=== PATIENT | female | born 1985 | race Caucasian/White ===

== ENCOUNTER → 2017-06-18 16:11 | Observation (INO) ==
[2017-06-18 14:44] LABS: Basophils % 0.1 %; Eosinophils % 0.1 %; Hematocrit 34.1 % (35.3-44.9); Hemoglobin 11.6 g/dL (11.5-15.4); Immature Granulocytes % 0.7 % (0-4); Lymphocytes # 1.2 K/mcL (0.6-4.6); Lymphocytes % 13.8 %; Mean Corpuscular Hemoglobin 31.6 pg (28.0-33.3); Mean Corpuscular Volume 92.9 fL (83.0-100.0); Mean Platelet Volume 12.1 fL (9.4-12.4); Monocytes # 0.5 K/mcL (0.0-1.3); Monocytes % 6.4 %; Neutrophils # 6.6 K/mcL (1.6-8.9); Platelet Count 153 K/mcL (140-400); Red Blood Count 3.67 M/mcL (3.82-4.97); Red Cell Distribution Width 13.4 % (11.5-14.5); Segmented Neutrophils % 78.9 %
[2017-06-18 14:46] LABS: Bilirubin,Urine Negative (Negative); Blood,Urine Negative (Negative); Clarity,Urine Clear (Clear); Color,Urine Yellow (Yellow); Glucose,Urine (UA) Normal (Normal); Ketones,Urine Negative (Negative); Leukocyte Esterase,Urine Negative (Negative); Nitrite,Urine Negative (Negative); Protein,Urine Negative (Neg-Trace); Specific Gravity,Urine 1.008 (1.010-1.025); Urobilinogen,Urine Normal (Normal)
[2017-06-18 14:53] LABS: Amphetamine Screen,Urine Negative ng/mL (Cutoff=1000); Barbiturate Screen,Urine Negative ng/mL (Cutoff=200); Benzodiazepines Screen,Urine Negative ng/mL (Cutoff=200); Cannabinoid Screen,Urine Negative ng/mL (Cutoff = 50); Cocaine Screen,Urine Negative ng/mL (Cutoff= 300); Opiate Screen,Urine Negative ng/mL (Cutoff=300); Phencyclidine Screen,Urine Negative ng/mL (Cutoff=25)
[2017-06-18 14:54] LABS: Creatinine,Urine 35 mg/dL
[2017-06-18 14:56] LABS: Alanine Aminotransferase 11 Units/L (0-55); Aspartate Amino Transferase 15 Units/L (5-34); BUN/Creatinine Ratio 11 (6-26); Blood Urea Nitrogen 8 mg/dL (7-20); Lactate Dehydrogenase 169 Units/L (159-327); Uric Acid 6.3 mg/dL (2.6-6.0); eGFR For African Americans > 60 (> 60); eGFR For Non-African Americans > 60 (> 60)
--- NOTE | 2017-06-18 15:50 | OB/GYN Progress Note ---
Date of Encounter: 06/18/17 Time of Encounter: 15:42 - Assessment and Plan (1) headache in third trimester Current Visit: Yes Status: Acute Patient with headache c/w sinus/tension headache. -Patient does not wish to take fioriciet -Advised to take tylenol cold and sinus as well as consume a small amount of caffeine. -PIH labs normal/Urine creatinine protein WNL -FU in office for routine care -FHT reactive and assuring (2) 37 weeks gestation of Current Visit: Yes Status: Acute Subjective - Subjective Principal diagnosis: Headache Interval history: 32-year-old female at 37 weeks and 3 days presents to [facility] for a PIH evaluation. Patient states she has had a headache for 2 days. She states she has been drinking a lot of fluids, and has taken Tylenol which has provided minimal relief. Patient describes her headache as located mostly in her face with radiation around to the back of her head and into her neck. She denies any visual disturbances, epigastric pain, nausea, or vomiting. Patient reports good movement. She denies any vaginal bleeding or leakage of fluid. Antepartum ROS: movement normal, no loss of fluid, no vaginal bleeding, no contractions Objective - Exam FHR: auscultation normal, category 1 FHR comments: FHT 140 baseline, moderate variability, 15x15 accelerations Auscultation: bilateral: normal Abdomen: Present: normal appearance, soft, gravid Uterus: Present: normal. Absent: tenderness - Labs Labs: Abnormal lab results RBC 3.67 M/mcL (3.82-4.97) L 06/18/17 14:20 Hct 34.1 % (35.3-44.9) L 06/18/17 14:20 Uric Acid 6.3 mg/dL (2.6-6.0) H 06/18/17 14:20 Ur Specific [place] 1.008 (1.010-1.025) L 06/18/17 14:10
[~2017-06-18 16:11] MED LIST: Ringers Solution, Lactated 1,000 ML IVC SCH
== END | disposition home or self-care (01) ==
LOC: 1NENULAB
PROVIDERS: ADMIT Obstetrics & Gynecology; ATTEND Obstetrics & Gynecology

== ENCOUNTER 2017-07-07 05:57 | Inpatient (IN) ==
[2017-07-07] MEDS ORDERED: Ondansetron 4 MG/2 ML VIAL IVP PRN (06:15)
[2017-07-07] MEDS ORDERED: Naloxone 0.4 MG/ML INJ IVP PRN (06:15)
[2017-07-07] MEDS ORDERED: Ringers Solution, Lactated 1,000 ML IVC SCH (06:15)
[2017-07-07] MEDS ORDERED: *HR* Nalbuphine 20 MG/ML AMPUL IVP PRN (06:15)
[2017-07-07] MEDS ORDERED: Famotidine 20 MG/2 ML VIAL IVP PRN (06:15)
[2017-07-07 06:26] LABS: Basophils % 0.2 %; Eosinophils % 0.2 %; Hematocrit 36.9 % (35.3-44.9); Hemoglobin 12.5 g/dL (11.5-15.4); Immature Granulocytes % 0.6 % (0-4); Lymphocytes # 1.3 K/mcL (0.6-4.6); Lymphocytes % 11.3 %; Mean Corpuscular HGB Conc 33.9 g/dL (31.6-35.5); Mean Corpuscular Volume 91.6 fL (83.0-100.0); Mean Platelet Volume 12.6 fL (9.4-12.4); Monocytes # 0.7 K/mcL (0.0-1.3); Monocytes % 6.4 %; Neutrophils # 9.1 K/mcL (1.6-8.9); Platelet Count 161 K/mcL (140-400); Red Blood Count 4.03 M/mcL (3.82-4.97); Red Cell Distribution Width 13.4 % (11.5-14.5); Segmented Neutrophils % 81.3 %
[2017-07-07 06:37] LABS: Amphetamine Screen,Urine Negative ng/mL (Cutoff=1000); Barbiturate Screen,Urine Negative ng/mL (Cutoff=200); Benzodiazepines Screen,Urine Negative ng/mL (Cutoff=200); Cannabinoid Screen,Urine Negative ng/mL (Cutoff = 50); Cocaine Screen,Urine Negative ng/mL (Cutoff= 300); Opiate Screen,Urine Negative ng/mL (Cutoff=300); Phencyclidine Screen,Urine Negative ng/mL (Cutoff=25)
--- NOTE | 2017-07-07 06:42 | Anesthesia Evaluation PreOp ---
Date of Encounter: 07/07/17 Time of Encounter: 06:37 - Past History Planned Operation: vaginal del, G1 spont 5cm Cardiac History: Denies any Significant Hx Pulmonary History: Denies Any Significant HX TAPPER SHANK History: Denies Any Significant HX Other Medical History: Other (chronic back pain, left sciatic problems, non dependent radiculopathy) Anesthesia History: No Prior Anesthetic Complications, Past Anesthesia (wisdom teeth, no family hx.) Alcohol Use: none Drug use: none Medications and Allergies Vit/Iron Fumarate/FA [ Tablet] 1 each PO DAILY 07/07/17 [ History] 3 Allergy/AdvReac Type Severity Reaction Status Date / Time No Known Allergies Allergy Verified 07/07/17 06:03 Anesthesia Results - Labs 07/07/17 06:15 Anesthesia Exam - HEENT Pupil (Motor): Pupils equal Mallampati: II Teeth: Normal Oral Opening: Greater than 3 - TAPPER SHANK LOC: Oriented TAPPER SHANK Motor: Normal RUE, Normal LUE, Normal RLE, Normal LLE, Normal Face TAPPER SHANK Sensory: Normal: RUE, LUE, RLE, LLE, Face - Cardiac Rhythm: Regular Murmur: None - Pulmonary Breath Sounds: bilateral Clear Respiratory Effort: Symmetrical Anesthesia Assess/Plan ASA Score: 2 Modified Luly Scale for Level of Consciousness: Cooperative, oriented, and tranquil Anesthetic Plan: General, Regional (patient does not want regional at this time. ) Monitoring Plan: Standard Monitors
--- NOTE | 2017-07-07 06:49 | OB/GYN History & Physical ---
Date of Encounter: 07/07/17 Time of Encounter: 06:45 Assessment and Plan (1) Spontaneous onset of labor Current visit: Yes Status: Acute Patient states that she has been having contractions since 2044 last night. States that they were about 6 minutes apart. Last check today she was 5/100/-1. Pervious check on 07/05/17 she was dilated 1cm LR-125ml/hr CBC UDS Continue monitoring Wants to wait on epidural GBS Negative- No prophylaxis required Plan for vaginal delivery (2) Uterine contractions Current visit: Yes Status: Acute Patient states that she has been having contractions since 2044 last night. States that they were about 6 minutes apart. (3) 40 weeks gestation of Current visit: Yes Status: Acute Patient is 40w1d EGA. Denies any complications with the . GBS Neg no prophylaxis required. History of Present Illness Chief complaint: contractions HPI: Ms. Chavis is a 32 year old female at 40w1d presents to labor and delivery for contractions. She states they began last night at 2044 and have been about every 6 minutes. Patient denies any loss of fluid or vaginal bleeding other than when she passed her mucus plug. Denies vaginal discharge. Denies any complications with the . Reports good movement. Patient states that she s having some sciatic pain that began prior to the . States that she is doing is doing well and would like to wait on epidural. Patient of Dr. Bernard Blood Type A Positive GBS Negative T pallidum-Negative Chlamydia Not detected Hep B Antigen Non Reactive HIV Nonreactive N. Gonorrhoeae Not Detected HPV Negative Rubella IgG Antibody-Positive VZV IgG antibody-Positive Past Med Surg Social Fam HX - Past Medical History Source: patient Medical history: no medical history Psychiatric history: depression - Past Surgical History Surgical History: no surgical history - Social History Smoking Status: Never smoker Smokeless Tobacco Status: No Alcohol use: none Drug use: none - Family History Mother Living Status: Still Living Hx Family Cardiac Disorders: No Hx Family Respiratory Disorders: No Hx Family Cancer: No Hx Family GI Disorders: No Hx Family Endocrine Disorder: Yes (hypothyroid) Hx Family Neuromuscular Disorders: No Hx Family Neurologic Disorders: No Hx Family HEENT Disorders: No Hx Family Autoimmune Disorders: No Obstetrical History - Pregnancies : 3 Para: 0 Term: 0 : 0 Ab's: 2 Livin - History/Complications History/Complications: Patient states that she has had to miscarriages in the past Medications and Allergies Vit/Iron Fumarate/FA [ Tablet] 1 each PO DAILY 07/07/17 [ History] 3 Allergy/AdvReac Type Severity Reaction Status Date / Time No Known Allergies Allergy Verified 07/07/17 06:03 Review of System OB All systems PM: reviewed and no additional remarkable complaints except as stated - Cardiovascular Cardiovascular: pedal edema Exam - Constitutional Constitutional: well developed, well nourished, no acute distress, average body habitus - Neck Neck exam: full ROM, normal inspection - Lungs Respiratory exam: CTAB - Cardiovascular Cardiovascular exam: RRR, +S1, +S2 - Abdomen Abdomen: Present: bowel sounds normal, gravid, non tender - Extremities Extremities exam: full ROM, pedal edema (Mild edema in bilateral feet.) - Cervix Dilation: 5 (per nursing) Effacement: 100 (per nursing ) Station: -1 (Per nursing) Results Result Diagrams: 07/07/17 06:15 Abnormal lab results WBC 11.2 K/mcL (4.3-11.1) H 07/07/17 06:15 MPV 12.6 fL (9.4-12.4) H 07/07/17 06:15 Neutrophils # 9.1 K/mcL (1.6-8.9) H 07/07/17 06:15 All other labs normal. - VTE Reasons for not Prescribing Prophylaxis: Treatment not Indicated - Low risk for VTE - Attending Attestation I examined this patient and my medical decision-making was reviewed with the Resident Physician. I agree with the documented findings, disposition and treatment plan as described except to the extent set forth below. Dyana Bernard DO
[2017-07-07] MEDS ORDERED: Epidural Premix (fent/bupiv) 110 ML EP ONE (10:06)
[2017-07-07] MEDS ORDERED: Epidural Premix (fent/bupiv) 110 ML EP SCH (10:15)
--- NOTE | 2017-07-07 10:49 | Anesthesia Procedures ---
Date of Encounter: 07/07/17 Time of Encounter: 10:15 Procedures: Anesthesia - Epidural/Spinal Patient ID/Chart reviewed: Yes Patient examined: Yes OB Eval: Gestational age: 40.1 OB Eval: : 1 OB Eval: Hx Para: 0 OB Eval: Dilated at (cm): 5 OB Eval: Contractions: Non-stressed pattern Consent Obtained: No Supplemental Oxygen: None/Room Air Site Prep: Aseptic Technique, Sterile prep and drape, Povidone-Iodine 1% Patient position: upright Amount of Local Anesthetic used: 3 Touhy Needle Gauge: 18 Touhy Needle Depth (cm): 8 Catheter Depth at Skin (cm): 9 Test Dose (1.5% Lido + Epi): Volume given (mls): 3 Test Dose Result: Negative Loading Dose Administered: Thru Catheter Infusion Rate (mls/hr): 12 Interspace Used: L4-L5 Loss of Resistance (MARINO): Yes Blood: No CSF: No Paresthesia: No Vitals + FHT's: stable throughout see nursing notes, uneventful GURMEET placement. no anesthesia concerns
--- NOTE | 2017-07-07 11:17 | OB Labor Progress Note ---
Date of Encounter: 07/07/17 Time of Encounter: 11:15 Labor Progress Note - Subjective Subjective: Patient resting in bed comfortable with epidural in place. Discussed POC with patient. Patient denies any questions or concerns. - Cervix Cervix: 6/100/0 - Heart Tones Heart Tones: 145 bpm moderate variability +15x15 naccels no decels noted. - Sophia Sophia: 2-5 min apart - Interventions Interventions: SVE, AROM small amount of clear fluid noted IUPC placed without difficulty. Patient tolerated well. - Plan Plan: Continue labor management.
[2017-07-07] MEDS ORDERED: Oxytocin 20 units/ LR 1000 mL 20 UNIT/1,000 ML BAG IVC SCH ×2 (11:30→17:30)
[2017-07-07] MEDS ORDERED: *HR* HYDROcodone/Acet 5/325 mg TABLET PO PRN (17:22)
[2017-07-07] MEDS ORDERED: Acetaminophen 325 MG TABLET PO PRN (17:22)
[2017-07-07] MEDS ORDERED: Benzocaine/Menthol 56 GM AEROSOL SPRAY TP PRN (17:22)
[2017-07-07] MEDS ORDERED: Lanolin 7 G OINT...G. TP PRN (17:22)
[2017-07-07] MEDS ORDERED: Measles/Mumps/Rubella Vacc 0.5 ML VIAL SQ PRN (17:22)
--- NOTE | 2017-07-07 17:22 | OB/GYN Procedure Note ---
Delivery - Delivery Date: 07/07/17 Provider: Kate Glynn (Dr. Gar, PGY1) Intrapartum events: none Delivery induction: none Delivery augmentation: rupture of membranes Delivery monitor: external FHT, internal uterine Anesthesia: epidural Estimated Blood Loss: 250 - (s) A Delivery Date: 07/07/17 Delivery Time: 16:48 Presentation: vertex Position: DOUG Route of delivery: Gender: Female Viability: Viable Pounds: 7 Ounces: 4 Weight Gram: 3.29 kg at 1 minute: 8 at 5 mins: 9 Shoulder Dystocia: not encountered Placenta: spontaneous Cord: 3 umbilical vessels, nuchal reduced (Nuchal Cord x 2 reduced.) - Repair Episiotomy: none Laceration Description: Perineal - 2nd Degree, Vaginal - Complications Delivery complications: none Delivery comments: Patient delivered a viable female weighing 7lb 4 oz at 1648 followed by spontaneous delivery of the placenta at 1659. There was a nuchal X2 that was reduced and then the shoulders were delivered.No meconium or shoulder dystocia was encountered. The patient had a vaginal and 2nd degree perineal tear that was repaired with 3-0 vicyl. Estimated blood loss was 250mL. No other complications were noted during the delivery. Mother and baby are stable in labor and delivery. - Disposition Mom disposition: stable in LDR disposition: stable in LDR
[2017-07-07] MEDS: Ibuprofen 600 MG TABLET PO PRN (19:51)
[2017-07-08] MEDS: Ibuprofen 600 MG TABLET PO PRN (08:40)
--- NOTE | 2017-07-08 08:44 | Discharge Summary ---
Date of Encounter: 07/08/17 Time of Encounter: 08:39 - Discharge Diagnosis (1) Vaginal delivery Priority: Primary Status: Acute Comments: Patient is a 32 year old female that delivered a viable female at 1648 on . She states that she has been eating with out issues. She has been abulating. Has been urinating but denies a bowel movement. States that she has been passing flatus. States that she has still been having vaginal bleeding but it has been deceasing. Patient states that she is still having some crampy abdominal pain. Patient is breast feeding. Patient will be discharged home Ibuprofen, stool softener and dermoplast spray for at home. (2) Breast feeding status of mother Priority: Secondary Status: Acute Comments: Mother states that she has been breast feeling. Prescription for a breast pump will be given - Discharge Medications Prescriptions: Ibuprofen [Motrin] 600 mg PO Q6HR PRN #30 tablet PRN Reason: Cramping Benzocaine/Menthol [place] [Dermoplast [place]] 1 appl TP QID PRN #1 aerosol PRN Reason: See Comments Docusate [Colace] 100 mg PO BID #60 capsule Home Medications: Vit/Iron Fumarate/FA [ Tablet] 1 each PO DAILY 07/07/17 [ History] Benzocaine/Menthol [place] [Dermoplast [place]] 1 appl TP QID PRN #1 aerosol [Rx] Breast Pump [BREAST PUMP] 1 each .ROUTE AD #1 each 07/08/17 [Rx] Docusate [Colace] 100 mg PO BID #60 capsule 07/08/17 [Rx] Ibuprofen [Motrin] 600 mg PO Q6HR PRN #30 tablet 07/08/17 [Rx] Allergies/Adverse Reactions: 3 Allergy/AdvReac Type Severity Reaction Status Date / Time No Known Allergies Allergy Verified 07/07/17 06:03 Data Procedures and tests throughout hospitalization: Laboratory Tests 07/07/17 07/07/17 06:15 06:15 WBC 11.2 H RBC 4.03 Hgb 12.5 Hct 36.9 MCV 91.6 MCH 31.0 MCHC 33.9 RDW 13.4 Plt Count 161 MPV 12.6 H Immature Gran % 0.6 Seg Neutrophils % 81.3 Lymphocytes % 11.3 Monocytes % 6.4 Eosinophils % 0.2 Basophils % 0.2 Neutrophils # 9.1 H Lymphocytes # 1.3 Monocytes # 0.7 Eosinophils # 0.0 Basophils # 0.0 Urine Opiates Screen Negative Ur Barbiturates Screen Negative Ur Phencyclidine Scrn Negative Ur Amphetamines Screen Negative U Benzodiazepines Scrn Negative Urine Cocaine Screen Negative U Marijuana (THC) Screen Negative Date of admission: 07/07/17 05:57 Primary care physician: Veda Espinosa CNP Consults: 07/07/17 17:22 Consult to Blank Driller [CONS] Routine Comment: Vaginal delivery, consult needed Discharging clinician: Jose Alejandro Gar Anticipated date of discharge: 07/08/17 - Patient Status Disposition: Home, Self-Care Condition: Good Functional capacity at discharge: independent ambulation Overall status at discharge: patient is progressing back to baseline - Discharge Instructions Follow Up With: Veda Espinosa CNP [Primary Care Provider] - - Diet and Activity Activity: increase activity as tolerated Diet: advance to your usual diet Hospital Course Reason for admission: active labor Delivery: Episiotomy: none Laceration: vaginal side wall, 2nd degree Other procedures: none complications: none Discharge diagnosis: IUP at term delivered [place] baby: female Hospital course: Delivery Date: 07/07/17 Provider: Kate Glynn (Dr. Gar, PGY1) Intrapartum events: none Delivery induction: none Delivery augmentation: rupture of membranes Delivery monitor: external FHT, internal uterine Anesthesia: epidural Estimated Blood Loss: 250 - (s) Infant A Delivery Date: 07/07/17 Infant Delivery Time: 16:48 Presentation: vertex Position: DOUG Route of delivery: Gender: Female Viability: Viable Pounds: 7 Ounces: 4 Weight Gram: 3.29 kg at 1 minute: 8 at 5 mins: 9 Shoulder Dystocia: not encountered Placenta: spontaneous Cord: 3 umbilical vessels, nuchal reduced (Nuchal Cord x 2 reduced.) - Repair Episiotomy: none Laceration Description: Perineal - 2nd Degree, Vaginal - Complications Delivery complications: none Delivery comments: Patient delivered a viable female weighing 7lb 4 oz at 1648 followed by spontaneous delivery of the placenta at 1659. There was a nuchal X2 that was reduced and then the shoulders were delivered.No meconium or shoulder dystocia was encountered. The patient had a vaginal and 2nd degree perineal tear that was repaired with 3-0 vicyl. Estimated blood loss was 250mL. No other complications were noted during the delivery. Mother and baby are stable in labor and delivery. - Disposition Mom disposition: stable and appropriate for discharge Time Attestation: Total time spent providing and/or coordinating discharge services: Time Spent: Less than 30 minutes Exam - Constitutional Vitals: Temp Pulse Resp BP Pulse Ox 98.3 F 83 16 114/72 98 07/08/17 03:52 07/08/17 03:52 07/08/17 08:00 07/08/17 03:52 07/08/17 03:52 General appearance IM: A&O X 3 - Respiratory Respiratory exam: Present: CTAB - Cardiovascular Cardiovascular exam IM: Present: RRR, +S1, +S2 - GI/Abdominal GI/Abdominal exam IM: normal bowel sounds - Uterine Tone: Firm Uterus Position: 1 Finger Below Umbilicus - Extremities Exam Extremities exam IM: Present: full ROM, normal capillary refill, normal inspection. Absent: calf tenderness - Neurological Exam Neurological exam: alert, oriented X3 - Psychiatric Additional comments: Normal mood and affect.
[2017-07-08] MEDS ORDERED: Prenatal Vit/FA 1 EACH TABLET PO SCH (09:00)
[2017-07-08 15:24] VITALS: BP 111/68
== END 2017-07-08 17:55 | disposition home or self-care (01) | DRG 775 ==
LOC: 1NENULAB → OBSVTOIN 05:57 → 1NENUOBS 19:49
PROVIDERS: ADMIT Obstetrics & Gynecology; ATTEND Obstetrics & Gynecology